=== PATIENT | female | born 1970 | race Caucasian/White ===

== ENCOUNTER 2016-08-17 07:50 | Day surgery (SDC) | payer OTHER ==
[~2016-08-17 07:50] MED LIST: LACTATED RINGERS 1,000 ML IV SCH
[2016-08-17 08:19] VITALS: TEMP 98.6
[2016-08-17] MEDS ORDERED: LIDOCAINE 1% 20 ML VIAL (10MG/ML) FOR IV START SQ ONE (08:28)
[2016-08-17] MEDS ORDERED: LACTATED RINGERS 1,000 ML IV ONE (08:30)
[2016-08-17] MEDS ORDERED: DEXAMETHASONE SOD PHOS (MDV) 100 MG/10 ML VIAL ONE (08:44)
[2016-08-17] MEDS ORDERED: MIDAZOLAM 2 MG/2 ML VIAL ONE (08:44)
[2016-08-17] MEDS ORDERED: fentaNYL (PF) 50 MCG/ML 2 ML AMP ONE (08:44)
--- NOTE | 2016-08-17 09:06 | P.PCN ---
Date of Procedure: 08/17/16 Procedure(s) Performed: . PROCEDURE 1. Cervical epidural steroid injection under fluoroscopic guidance, C6-7 2. Cervical epidurogram. PREOPERATIVE DIAGNOSIS: 1- Cervical Degenerative Disc Diseases 2- Cervical radiculopathy. POSTOPERATIVE DIAGNOSIS: : 1- Cervical Degenerative Disc Diseases , 2- Cervical radiculopathy. ANESTHESIA: Local anesthesia with 1% lidocaine2 ml and IV sedation with Versed 2 mg and Fentanyl 100 mcg. EBL 0 PROCEDURE INDICATION: The patient with neck pain and radiculitis unresponsive to conservative treatment consents for procedure. PROCEDURE DESCRIPTION / TECHNIQUE: The patient was seen and identified in the preoperative area. Risks, benefits, complications, including but not limited to infections ,bleeding , allergic reactions to the medications ,and not complete pain releife, and alternatives were discussed with the patient, the patient agreed to proceed with the procedure and signed the consent. Patient was taken to the OR and time out was completed. The patient was placed in the prone position on the procedure table. A pillow was placed under the patients chest to increase the cervical interlaminar space. The cervical area was prepped and draped in the usual sterile fashion. Vital signs were closely monitored during the procedure. Conscious sedation was used during the procedure to decrease patients anxiety. Using anterior-posterior fluoroscopy, the C6-7 interlaminar space was identified and the skin over this site was marked and then infiltrated with 1% lidocaine subcutaneously. Subsequently, a 20-gauge 3-1/2-inch Tuohy epidural needle was inserted and advanced toward the epidural space by means of the `` hanging-drop technique and guided by AP and lateral fluoroscopy. The correct needle position in the epidural space was verified with fluoroscopy, then after negative aspiration for blood and CSF and in the absence of paresthesias dexamethasone 20 mg and normal saline 0.9% preservative-free 2 ml mixed together and injected after negative aspiration,. then the Needle was withdrawn intact, skin was cleansed, and bandages were applied. Complications= none. Disposition= patient was placed in supine position and transferred to the recovery room area in stable condition and there was no evidence of upper or lower extremity motor or sensory deficit after the procedure patient was discharged from recovery room after discharge criteria met and home discharge instructions was given by the staff and patient will follow with the pain clinic in 2-4 weeks
[2016-08-17] MEDS ORDERED: IV FLUID CONTINUATION 1,000 ML IV ONE ×2 (09:13)
--- NOTE | 2016-08-17 09:15 | FL ---
FLUOROSCOPY 1 seconds of fluoroscopy time were utilized during Pain Injection. 1 images document the procedure.
[2016-08-17 09:31] VITALS: BP 131/79; PULSE 99; RESP 20
== END 2016-08-17 09:43 | disposition home or self-care (01) ==
LOC: ORPAIN 07:50
PROVIDERS: ATTEND Specialist
DX: M50.10 Cervical disc disorder with radiculopathy, unspecified cervical region (principal); Z91.040 Latex allergy status; Z88.5 Allergy status to narcotic agent; Z91.018 Allergy to other foods; Z91.09 Other allergy status, other than to drugs and biological substances
CPT/HCPCS: 62321; 99152; J2250; J3010; J1100

== ENCOUNTER 2016-09-15 17:19 | Emergency (ER) | payer OTHER ==
[2016-09-15 17:25] VITALS: RESP 18
[2016-09-15] MEDS ORDERED: SODIUM CHLORIDE 0.9% 1,000 ML IV ONE (18:02)
[2016-09-15] MEDS ORDERED: ONDANSETRON 4 MG/2 ML VIAL IVP STA (18:02)
[2016-09-15] MEDS ORDERED: SUCRALFATE 1 GM TAB PO STA (18:02)
[2016-09-15] MEDS ORDERED: FAMOTIDINE 20 MG/2 ML VIAL IV STA (18:02)
[2016-09-15 18:58] LABS: Basophils # (A) 0.1 k/uL (0-0.2); Basophils % (A) 1 %; CH 30.6; CHCM 35.5; Eosinophils # (A) 0.2 k/uL (0-0.7); Eosinophils % (A) 1 %; HDW 3.12; HGB 15.9 gm/dL (11.4-16.0); Luc % (Auto) 2; Lymphocytes # (A) 1.6 k/uL (1.0-4.8); Lymphocytes % (A) 12 %; MCH 29.3 pg (25.0-35.0); MCHC 33.7 g/dL (31.0-37.0); MCV 86.9 fL (80.0-100.0); Mean Platelet Volume 6.8; Monocytes # (A) 0.4 k/uL (0-1.0); Monocytes % (A) 3 %; Neutrophils # (A) 10.4 k/uL (1.3-7.7); Neutrophils % (A) 80 %; RBC 5.41 m/uL (3.80-5.40); RDW 14.1 % (11.5-15.5); WBC 13.1 k/uL (3.8-10.6)
[2016-09-15 19:01] LABS: Appearance,Urine Clear (Clear); Bacteria,Urine Rare /hpf; Bilirubin,Urine Negative (Negative); Glucose,Urine (UA) Negative (Negative); Ketones,Urine Trace (Negative); Leukocyte Esterase,Urine Moderate (Negative); Mucus,Urine Occasional /hpf; Nitrite,Urine Negative (Negative); PH, Urine 6.5 (5.0-8.0); Particle Count 4147; Protein,Urine Trace (Negative); RBC,Urine 6 /hpf (0-5); Specific Gravity,Urine 1.025 (1.001-1.035); Squamous Epithelial Cell,Urine 2 /hpf (0-4); UA Billing (MACRO vs. MICRO) MICRO; WBC,Urine 9 /hpf (0-5)
[2016-09-15 19:14] LABS: ALT 45 U/L (9-52); AST 25 U/L (14-36); Alkaline Phosphatase 87 U/L (38-126); Anion Gap 14 mmol/L; Blood Urea Nitrogen 14 mg/dL (7-17); Calcium 9.9 mg/dL (8.4-10.2); Carbon Dioxide 27 mmol/L (22-30); Chloride 107 mmol/L (98-107); Glucose 123 mg/dL (74-99); Non-African American GFR(MDRD) >60 (>60 ml/min/1.73 sqM); Potassium 4.7 mmol/L (3.5-5.1); Sodium 148 mmol/L (137-145); Total Bilirubin 0.7 mg/dL (0.2-1.3); Total Protein 7.6 g/dL (6.3-8.2)
--- NOTE | 2016-09-15 19:24 | US ---
EXAMINATION TYPE: US abdomen limited DATE OF EXAM: 09/15/2016 7:17 PM COMPARISON: NONE CLINICAL HISTORY: Nausea/vomiting. Pain. Difficult/limited exam due to patient body habitus. EXAM MEASUREMENTS: Liver Length: 19.2 cm Gallbladder Wall: 0.2 cm CBD: 0.3 cm Right Kidney: 10.7 x 4.2 x 5.1 cm Findings: Pancreas: Obscured by bowel gas, visualized portions show no mass Liver: Increased attenuation, heterogeneous. Enlarged Gallbladder: wnl Evidence for sonographic Rodríguez's sign: No CBD: wnl Right Kidney: No hydronephrosis or masses seen IMPRESSION: 1. Hepatomegaly with fatty liver.
--- NOTE | 2016-09-15 19:53 | ED ---
Nausea/Vomiting/Diarrhea HPI - General Chief complaint: Nausea/Vomiting/Diarrhea Stated complaint: dehydration Source: patient Mode of arrival: ambulatory Limitations: no limitations - History of Present Illness Initial comments: Patient is a 46-year-old female who presents for evaluation for nausea and vomiting times one night. Past medical history as below. Patient states that she's been very nauseous throughout the day today. No significant changes in diet. Stated that her emesis was mainly stomach contents but then became more bilious in nature. She has some discomfort to the epigastric area. No radiation of pain. Nothing seems to make it better or worse. It may have gotten worse after eating but she is not sure. Good appetite today. Patient believes that is related to her recent change in medications. She has been titrating down her Lamictal, duloxetine which she thinks that may be related. However, the patient has been tolerating these medications in the past and has otherwise been doing well with them. No known sick contacts. She denies fever , chills, headache, changes of vision, URI symptoms, shortness of breath, cough , chest pain, diarrhea, pain or burning with urination. Isn't on related aside, the patient does have an extensive rash to her upper extremities lower extremities and parts of her back and abdomen. She is working with dermatology as an outpatient and has tried several medications with limited relief. She states that the rash is itchy and she scratches it and she bleeds and scabs over. There is been no change in her rash. - Related Data Home Medications Medication Instructions Recorded Confirmed Albuterol Inhaler [Ventolin 2 puff INHALATION RT-Q4H PRN 04/10/14 09/15/16 Inhaler] DULoxetine HCL [Cymbalta] 60 mg PO BID 04/10/14 09/15/16 Montelukast [Singulair] 10 mg PO HS 04/10/14 09/15/16 Omeprazole [PriLOSEC] 20 mg PO AC-BRKFST 04/10/14 09/15/16 lamoTRIgine [LaMICtal] 200 mg PO BID 04/10/14 09/15/16 Lisinopril [Zestril] 20 mg PO DAILY 03/26/16 09/15/16 Medroxyprogesterone Acetate 150 mg IM Q84D 03/26/16 09/15/16 [Depo-Provera] Metoprolol Tartrate 50 mg PO BID 03/26/16 09/15/16 Modafinil [Provigil] 200 mg PO DAILY 03/26/16 09/15/16 QUEtiapine FUMARATE [SEROquel XR] 150 mg PO HS 03/26/16 09/15/16 Cholecalciferol [Vitamin D3] 3,000 unit PO DAILY 04/29/16 09/15/16 Ranitidine HCl [Zantac] 75 mg PO HS 08/12/16 09/15/16 Butalb/APAP/Caff 50-325-40Mg 1 tab PO Q8H PRN 09/15/16 09/15/16 [Fioricet 50-325-40] Previous Rx's Medication Instructions Recorded Ondansetron Odt [Zofran Odt] 4 mg PO Q8HR PRN #10 tab 09/15/16 Allergies Allergy/AdvReac Type Severity Reaction Status Date / Time coconut AdvReac Rash/Hives Verified 09/15/16 17:25 codeine AdvReac Nausea & Verified 09/15/16 17:25 Vomiting ibuprofen AdvReac GI upset Verified 09/15/16 17:25 iodine AdvReac Itching Verified 09/15/16 17:25 kiwi AdvReac Rash/Hives Verified 09/15/16 17:25 latex AdvReac Itching Verified 09/15/16 17:25 NSAIDS (Non-Steroidal AdvReac GI upset Verified 09/15/16 17:25 Anti-Inflamma shellfish derived AdvReac Itching Verified 09/15/16 17:25 Sulfa (Sulfonamide AdvReac Nausea & Verified 09/15/16 17:25 Antibiotics) Vomiting water chestnut AdvReac Rash/Hives Verified 09/15/16 17:25 barium solution AdvReac Nausea & Uncoded 09/15/16 17:25 Vomiting Review of Systems ROS Statement: Those systems with pertinent positive or pertinent negative responses have been documented in the HPI. ROS Other: All systems not noted in ROS Statement are negative. Past Medical History Past Medical History: Asthma, Fibromyalgia, GERD/Reflux, GI Bleed, Hypertension Additional Past Medical History / Comment(s): Chronic Fatigue, Hiatal Hernia, Narcolepsy History of Any Multi-Drug Resistant Organisms: None Reported Past Surgical History: Appendectomy, Orthopedic Surgery Additional Past Surgical History / Comment(s): BILAT carpal tunnel, PAIN CLINIC , CUBITAL TUNNEL RELEASE BILAT ELBOWS, dental surgery Past Anesthesia/Blood Transfusion Reactions: No Reported Reaction Past Psychological History: Bipolar Smoking Status: Never smoker Past Alcohol Use History: None Reported Additional Past Alcohol Use History / Comment(s): recovering alcoholic Past Drug Use History: None Reported - Past Family History Mother Family Medical History: Deep Vein Thrombosis (DVT), Myocardial Infarction ([place]) Additional Family Medical History / Comment(s): lupus General Exam Limitations: no limitations General appearance: alert, in no apparent distress, other (Nontoxic appearing) Head exam: Present: atraumatic, normocephalic, normal inspection Eye exam: Present: normal appearance, PERRL, EOMI. Absent: scleral icterus, conjunctival injection, periorbital swelling ENT exam: Present: normal exam, mucous membranes moist Neck exam: Present: normal inspection. Absent: tenderness, meningismus, lymphadenopathy Respiratory exam: Present: normal lung sounds bilaterally. Absent: respiratory distress, wheezes, rales, rhonchi, stridor Cardiovascular Exam: Present: regular rate, normal rhythm, normal heart sounds. Absent: systolic murmur, diastolic murmur, rubs, gallop, clicks GI/Abdominal exam: Present: soft, normal bowel sounds, other (Abdomen is somewhat tender in the epigastric area. Negative Rodríguez sign. Soft abdomen. No peritoneal signs.). Absent: distended, tenderness, guarding, rebound, rigid Extremities exam: Present: normal inspection, full ROM, normal capillary refill. Absent: tenderness, pedal edema, joint swelling, calf tenderness Back exam: Present: normal inspection Neurological exam: Present: alert, oriented X3, CN II-XII intact Psychiatric exam: Present: normal affect, normal mood Skin exam: Present: warm, dry, intact, normal color, other (Patient has multiple hives that have been scratched and scabbed over. No cellulitis. No erythematous base. Not any specific dermatomal distribution to be suggestive of shingles. No abscesses.). Absent: rash Course Vital Signs 09/15/16 17:22 Temperature 98.9 F Pulse Rate 84 Respiratory 18 Rate Blood Pressure 147/98 O2 Sat by Pulse 100 Oximetry Medical Decision Making - Medical Decision Making Patient presents for evaluation for nausea and vomiting. Symptoms have been going on for the last 24 hours. Patient has been working with her composite bond technician for this ongoing rash which is pitting going on for the last 3-4 weeks. Has tried multiple medications. Her main concern today though however is the nausea and vomiting and epigastric discomfort that she's having. It sounds like biliary colic in nature. We'll order notches sound of her right upper quadrant, abdominal labs, IV fluids, antiemetics, GI cocktail. 1950: Laboratory studies as below. Largely unremarkable. Mild leukocytosis at 13.1. Kidney function is normal. Liver enzymes are normal. Reviewed ultrasound which revealed a fatty liver. No specific signs of gallbladder pathology. I went to reevaluate the patient and she states that she actually feels much better. Will give a prescription for Zofran for home. Encourage close follow-up with her primary care physician. May require further outpatient testing. Mono diet. Plenty of fluids. As far as her rash goes, I did offer the patient clindamycin for concern for possible MRSA with her frequent scratching and bleeding and scabs over. Patient declined prescription and states that she will follow-up with her composite bond technician who she's been working with closely. Also stressed the importance of working with her outpatient physicians for down titrating her medications as they could've serious side effects. Voiced understanding. Discussed signs and symptoms on when to return to the emergency department for further evaluation. Comfortable discharge home and will follow-up. - Lab Data Result diagrams: 09/15/16 18:34 09/15/16 18:34 Lab Results 09/15/16 09/15/16 09/15/16 Range/Units 18:34 18:34 18:34 WBC 13.1 H (3.8-10.6) k/uL RBC 5.41 H (3.80-5.40) m/uL Hgb 15.9 (11.4-16.0) gm/dL Hct 47.0 H (34.0-46.0) % MCV 86.9 (80.0-100.0) fL MCH 29.3 (25.0-35.0) pg MCHC 33.7 (31.0-37.0) g/dL RDW 14.1 (11.5-15.5) % Plt Count 279 (150-450) k/uL Neutrophils % 80 % Lymphocytes % 12 % Monocytes % 3 % Eosinophils % 1 % Basophils % 1 % Neutrophils # 10.4 H (1.3-7.7) k/uL Lymphocytes # 1.6 (1.0-4.8) k/uL Monocytes # 0.4 (0-1.0) k/uL Eosinophils # 0.2 (0-0.7) k/uL Basophils # 0.1 (0-0.2) k/uL Sodium 148 H (137-145) mmol/L Potassium 4.7 (3.5-5.1) mmol/L Chloride 107 (98-107) mmol/L Carbon Dioxide 27 (22-30) mmol/L Anion Gap 14 mmol/L BUN 14 (7-17) mg/dL Creatinine 0.90 (0.52-1.04) mg/dL Est GFR (MDRD) Af Amer >60 (>60 ml/min/1.73 sqM) Est GFR (MDRD) Non-Af >60 (>60 ml/min/1.73 sqM) Glucose 123 H (74-99) mg/dL Calcium 9.9 (8.4-10.2) mg/dL Total Bilirubin 0.7 (0.2-1.3) mg/dL AST 25 (14-36) U/L ALT 45 (9-52) U/L Alkaline Phosphatase 87 (38-126) U/L Total Protein 7.6 (6.3-8.2) g/dL Albumin 4.5 (3.5-5.0) g/dL Lipase 97 (23-300) U/L Urine Color Yellow Urine Appearance Clear (Clear) Urine pH 6.5 (5.0-8.0) Ur Specific [place] 1.025 (1.001-1.035) Urine Protein Trace H (Negative) Urine Glucose (UA) Negative (Negative) Urine Ketones Trace H (Negative) Urine Blood Negative (Negative) Urine Nitrate Negative (Negative) Urine Bilirubin Negative (Negative) Urine Urobilinogen 2.0 (<2.0) mg/dL Ur Leukocyte Esterase Moderate H (Negative) Urine RBC 6 H (0-5) /hpf Urine WBC 9 H (0-5) /hpf Ur Squamous Epith Cells 2 (0-4) /hpf Urine Bacteria Rare H (None) /hpf Urine Mucus Occasional H (None) /hpf Influenza Type A RNA (Not Detectd) Influenza Type B (PCR) (Not Detectd) 09/15/16 Range/Units 18:34 WBC (3.8-10.6) k/uL RBC (3.80-5.40) m/uL Hgb (11.4-16.0) gm/dL Hct (34.0-46.0) % MCV (80.0-100.0) fL MCH (25.0-35.0) pg MCHC (31.0-37.0) g/dL RDW (11.5-15.5) % Plt Count (150-450) k/uL Neutrophils % % Lymphocytes % % Monocytes % % Eosinophils % % Basophils % % Neutrophils # (1.3-7.7) k/uL Lymphocytes # (1.0-4.8) k/uL Monocytes # (0-1.0) k/uL Eosinophils # (0-0.7) k/uL Basophils # (0-0.2) k/uL Sodium (137-145) mmol/L Potassium (3.5-5.1) mmol/L Chloride (98-107) mmol/L Carbon Dioxide (22-30) mmol/L Anion Gap mmol/L BUN (7-17) mg/dL Creatinine (0.52-1.04) mg/dL Est GFR (MDRD) Af Amer (>60 ml/min/1.73 sqM) Est GFR (MDRD) Non-Af (>60 ml/min/1.73 sqM) Glucose (74-99) mg/dL Calcium (8.4-10.2) mg/dL Total Bilirubin (0.2-1.3) mg/dL AST (14-36) U/L ALT (9-52) U/L Alkaline Phosphatase (38-126) U/L Total Protein (6.3-8.2) g/dL Albumin (3.5-5.0) g/dL Lipase (23-300) U/L Urine Color Urine Appearance (Clear) Urine pH (5.0-8.0) Ur Specific [place] (1.001-1.035) Urine Protein (Negative) Urine Glucose (UA) (Negative) Urine Ketones (Negative) Urine Blood (Negative) Urine Nitrate (Negative) Urine Bilirubin (Negative) Urine Urobilinogen (<2.0) mg/dL Ur Leukocyte Esterase (Negative) Urine RBC (0-5) /hpf Urine WBC (0-5) /hpf Ur Squamous Epith Cells (0-4) /hpf Urine Bacteria (None) /hpf Urine Mucus (None) /hpf Influenza Type A RNA Not Detected (Not Detectd) Influenza Type B (PCR) Not Detected (Not Detectd) Disposition Clinical Impression: Nausea & vomiting, Leukocytosis, Rash Disposition: HOME SELF-CARE Condition: Fair Instructions: Acute Nausea and Vomiting (ED), Acute Rash (ED) Prescriptions: Ondansetron Odt [Zofran Odt] 4 mg PO Q8HR PRN #10 tab PRN Reason: Nausea And Vomiting Referrals: Jillian Mcguire MD [Primary Care Provider] - 1-2 days Nickolas Grigsby MD [STAFF PHYSICIAN] - 1-2 days
[2016-09-15 20:12] VITALS: BP 124/72; PULSE 70; TEMP 98.6
== END 2016-09-15 20:15 | disposition home or self-care (01) ==
LOC: EC 17:19
DX: R11.2 Nausea with vomiting, unspecified (principal); D72.829 Elevated white blood cell count, unspecified; R21 Rash and other nonspecific skin eruption; R19.7 Diarrhea, unspecified; J45.909 Unspecified asthma, uncomplicated; G47.419 Narcolepsy without cataplexy; K21.9 Gastro-esophageal reflux disease without esophagitis; I10 Essential (primary) hypertension; M79.7 Fibromyalgia; F31.9 Bipolar disorder, unspecified; Z79.899 Other long term (current) drug therapy; Z88.2 Allergy status to sulfonamides; Z88.8 Allergy status to other drugs, medicaments and biological substances; Z91.013 Allergy to seafood; Z91.018 Allergy to other foods; Z88.6 Allergy status to analgesic agent; Z88.5 Allergy status to narcotic agent; Z87.19 Personal history of other diseases of the digestive system; Z90.49 Acquired absence of other specified parts of digestive tract
CPT/HCPCS: 99284; 96374; 96375; 96361 ×2; 36415; 80053; 83690; 85025; 81001; 87502; 76705; J2405

== ENCOUNTER 2016-09-21 06:23 | Day surgery (SDC) | payer OTHER ==
[2016-09-17 15:11] VITALS: BMI 39.3
[2016-09-21] MEDS ORDERED: LACTATED RINGERS 1,000 ML IV SCH (06:30)
[2016-09-21 06:44] VITALS: TEMP 98
[2016-09-21] MEDS ORDERED: LIDOCAINE 1% 20 ML VIAL (10MG/ML) FOR IV START INTRADERMA ONE (06:49)
[2016-09-21] MEDS ORDERED: MIDAZOLAM 2 MG/2 ML VIAL ONE (07:12)
[2016-09-21] MEDS ORDERED: fentaNYL (PF) 50 MCG/ML 2 ML AMP ONE (07:12)
[2016-09-21] MEDS ORDERED: DEXAMETHASONE SOD PHOS (MDV) 100 MG/10 ML VIAL ONE (07:12)
[2016-09-21] MEDS ORDERED: IV FLUID CONTINUATION 700 ML IV ONE (07:37)
[2016-09-21 07:58] VITALS: RESP 18
--- NOTE | 2016-09-21 08:07 | FL ---
EXAMINATION TYPE: FL guided pain mgmt statistic DATE OF EXAM: 09/21/2016 7:36 AM CLINICAL HISTORY: Neck pain. TECHNIQUE: Fluoroscopy. COMPARISON: None. FINDINGS: Fluoroscopic guidance was provided during pain relief procedure performed by Dr. Valdez . A total of 12 seconds of fluoroscopic time was utilized during the procedure and one spot image is ac quired. Single image acquired shows needle localization at level of the lower cervical spine. IMPRESSION: As Above.
[2016-09-21 08:30] VITALS: BP 112/75; PULSE 75
--- NOTE | 2016-09-21 09:33 | P.PCN ---
Date of Procedure: 09/21/16 Surgeon: Jonh Valdez Pathology: none sent Condition: stable Disposition: PACU Description of Procedure: PREOPERATIVE DIAGNOSIS: Cervical radiculopathy. POSTOPERATIVE DIAGNOSIS: Cervical radiculopathy. PROCEDURE 1. Cervical epidural steroid injection under fluoroscopic guidance, C7-T1 level. 2. Cervical epidurogram. ANESTHESIA: Local anesthesia with 1% lidocaine and IV sedation with versed/ fentanyl. EBL: Minimal PROCEDURE INDICATION: The patient with neck pain and radiculitis unresponsive to conservative treatment consents for procedure. No use of blood thinners. PROCEDURE DESCRIPTION / TECHNIQUE: The patient was seen and identified in the preoperative area. Risks, benefits, complications, and alternatives were discussed with the patient (including but not limited to incomplete pain relief, bleeding, infection, nerve damage, and allergies to medications), the patient agreed to proceed with the procedure and signed the consent after all questions were answered. Patient was taken to the OR and time out was completed to verify proper patient , position, laterality of pain, and allergies. Pt was placed in the prone position. A pillow was placed under the patients chest to increase the cervical interlaminar space. The cervical area was prepped and draped in the usual sterile fashion. Critical pause was taken. Vital signs were closely monitored during the procedure. Conscious sedation was used during the procedure to decrease patients anxiety. Using anterior-posterior fluoroscopy, the C7-T1 interlaminar space was identified and the skin over this site was marked and then infiltrated with 1% lidocaine subcutaneously in a paramedian fashion. Subsequently, a 20-gauge 3-1/2 -inch Tuohy epidural needle was inserted and advanced toward the epidural space by means of the loss of resistance technique and guided by AP and lateral fluoroscopy. After loss of resistance and negative aspiration for blood or CSF and in the absence of paresthesias, NO CONTRAST WAS INJECTED DUE TO IODINE ALLERGY and a 5 ml mixture containing 20 mg of Decadron and 3 ml of preservative free Normal Saline solution was injected and a washout of epidurogram was seen. Needle was withdrawn intact, skin was cleansed, and bandages were applied. COMPLICATIONS: None COMMENTS: DISPOSITION / PLANS: The patient was placed in a supine position and transferred to the recovery area in a stable condition for observation. There was no evidence of upper extremity motor or sensory deficit after the procedure. Patient was discharged from the recovery room after meeting discharge criteria. Home discharge instructions were given to the patient by the staff. The patient was reexamined prior to discharge. The patient will schedule a follow up in the clinic in 2-4 weeks as this was her third injection today.
== END 2016-09-21 08:39 | disposition home or self-care (01) ==
LOC: ORPAIN 06:23
PROVIDERS: ATTEND Anesthesiology
DX: G89.29 Other chronic pain (principal); M54.2 Cervicalgia; M54.12 Radiculopathy, cervical region; R51 Headache; Z91.040 Latex allergy status; Z88.5 Allergy status to narcotic agent; Z88.8 Allergy status to other drugs, medicaments and biological substances; Z91.09 Other allergy status, other than to drugs and biological substances
CPT/HCPCS: 81025; 62321; 99152; J2250; J3010; J1100

== ENCOUNTER → 2016-10-21 | Outpatient (CLI) | payer OTHER ==
[2016-10-21 12:29] VITALS: BP 122/83; PULSE 99; RESP 16; TEMP 98.1
--- NOTE | 2016-10-22 16:06 | P.CONS ---
History of Present Illness - Reason for Consult Consult date: 10/21/16 - History of Present Illness This is a follow-up visit ,for this patient with a history of severe neck pain with radiation to the upper extremity patient was diagnosed with cervical radiculopathy, status post cervical epidural steroid injections patient reported that she had significant improvement of her neck pain after the injection, and she is currently having severe bilateral hip pain , and she reports was no initiating event and the hip pain increased with any activity, she denies any motor or sensory deficit she denies any fever or night sweats, the hip pain increased with movement Past Medical History Past Medical History: Asthma, Fibromyalgia, GERD/Reflux, GI Bleed, Hypertension Additional Past Medical History / Comment(s): Chronic Fatigue, Hiatal Hernia, Narcolepsy History of Any Multi-Drug Resistant Organisms: None Reported Past Surgical History: Appendectomy, Orthopedic Surgery Additional Past Surgical History / Comment(s): BILAT carpal tunnel, PAIN CLINIC , CUBITAL TUNNEL RELEASE BILAT ELBOWS, dental surgery Past Anesthesia/Blood Transfusion Reactions: No Reported Reaction Past Psychological History: Bipolar Smoking Status: Never smoker Past Alcohol Use History: None Reported Additional Past Alcohol Use History / Comment(s): recovering alcoholic Past Drug Use History: None Reported - Past Family History Mother Family Medical History: Deep Vein Thrombosis (DVT), Myocardial Infarction ([place]) Additional Family Medical History / Comment(s): lupus Medications and Allergies Home Medications Medication Instructions Recorded Confirmed Type Albuterol Inhaler [Ventolin 2 puff INHALATION RT-Q4H PRN 04/10/14 10/21/16 History Inhaler] Montelukast [Singulair] 10 mg PO HS 04/10/14 10/21/16 History Omeprazole [PriLOSEC] 20 mg PO AC-BRKFST 04/10/14 10/21/16 History Lisinopril [Zestril] 20 mg PO DAILY 03/26/16 10/21/16 History Medroxyprogesterone Acetate 150 mg IM Q84D 03/26/16 10/21/16 History [Depo-Provera] Modafinil [Provigil] 200 mg PO DAILY 03/26/16 10/21/16 History Cholecalciferol [Vitamin D3] 3,000 unit PO DAILY 04/29/16 10/21/16 History Ranitidine HCl [Zantac] 75 mg PO HS 08/12/16 10/21/16 History Butalb/APAP/Caff 50-325-40Mg 1 tab PO Q8H PRN 09/15/16 10/21/16 History [Fioricet 50-325-40] LORazepam [Ativan] 1 mg PO HS 09/21/16 10/21/16 History Methylphenidate HCl 20 mg PO BID PRN 10/21/16 10/21/16 History Allergies Allergy/AdvReac Type Severity Reaction Status Date / Time duloxetine Allergy Rash/Hives Verified 10/21/16 12:17 lamotrigine [From Lamictal] Allergy Rash/Hives Verified 10/21/16 12:17 quetiapine [From Seroquel] Allergy Rash/Hives Verified 10/21/16 12:17 coconut AdvReac Rash/Hives Verified 10/21/16 12:17 codeine AdvReac Nausea & Verified 10/21/16 12:17 Vomiting ibuprofen AdvReac GI upset Verified 10/21/16 12:17 iodine AdvReac Itching Verified 10/21/16 12:17 kiwi AdvReac Rash/Hives Verified 10/21/16 12:17 latex AdvReac Itching Verified 10/21/16 12:17 NSAIDS (Non-Steroidal AdvReac GI upset Verified 10/21/16 12:17 Anti-Inflamma shellfish derived AdvReac Itching Verified 10/21/16 12:17 Sulfa (Sulfonamide AdvReac Nausea & Verified 10/21/16 12:17 Antibiotics) Vomiting water chestnut AdvReac Rash/Hives Verified 10/21/16 12:17 barium solution AdvReac Nausea & Uncoded 10/21/16 12:17 Vomiting Physical Exam Physical Examinations : 1-Constitutiona : Cooperative , not in acute distress . 2-HEENT : nech ; supple , no Lymphadenopathy , no Thyromegaly , normal thyroid size . eyes : no ptosis , no icterus, no photophobia . ENT : normal of hearing , normal oropharynx , no Thrush . 3- Respiratory : Chest clear to auscultations Bilaterally , no wheezing , no Rhonchi . 4- Cardiovascular : regular rate and rhythem , S1 , S2 , no S3 , no S4. 5- Gastrointestinal : abdomen soft no tenderness , bowel sounds positive all four quadrents , no organomegally . 6- Genitourinary : Defferred . 7- neurologic : Cranial nerve II to XII intact , no focal neurological deffecit . 8-psychatric : alert , oriented X 3 , appropriate affect , intact judgment and insight . 9-Lymphatic : no Lymphadenopathy . 10- musculoskeltal : exams of the cervical spine = normal motor stregnth in the deltoid and biceps, positive cervical facet loading test . exams of the Lumber spine = normal moter stegnth lower extremities ,thigh and legs .5/5 deep tendon reflexes : normal Knee Jerk , normal ankle Jerk . positive lumber facet Loading Test strait leg raising test negative Fabere test negative Flexion and extension of the left hip joint associated with severe pain Flexion and extension of the right hip joint associated with mild to moderate pain Assessment and Plan Plan: Assessment and plan = - Cervical radiculopathy, improved after the cervical epidural steroid injection. -Left hip arthralgia, she benefits from left hip steroid injection under fluoroscopy guidance she does not benefit after the first injection then we'll consider doing an MRI , I'm referring her to orthopedic surgeon for evaluation for possible surgical interventions treatment plan discussed with patient she agreed to the proceeding Time with Patient: Less than 30
== END | disposition home or self-care (01) ==
LOC: PNWHC3 12:05
PROVIDERS: ATTEND Specialist
DX: M54.12 Radiculopathy, cervical region (principal); J45.909 Unspecified asthma, uncomplicated; M79.7 Fibromyalgia; K21.9 Gastro-esophageal reflux disease without esophagitis; I10 Essential (primary) hypertension; K92.2 Gastrointestinal hemorrhage, unspecified; Z79.899 Other long term (current) drug therapy; Z88.8 Allergy status to other drugs, medicaments and biological substances; Z88.5 Allergy status to narcotic agent; Z88.6 Allergy status to analgesic agent; Z91.048 Other nonmedicinal substance allergy status; Z91.040 Latex allergy status; Z91.013 Allergy to seafood; Z88.2 Allergy status to sulfonamides; Z91.018 Allergy to other foods
CPT/HCPCS: 99211

== ENCOUNTER → 2016-12-04 | Outpatient (CLI) | payer OTHER | LOC: RADMAMWWP 13:49 | PROVIDERS: ATTEND Family Medicine | DX: Z53.9 Procedure and treatment not carried out, unspecified reason (principal) ==

== ENCOUNTER → 2017-03-24 | Day surgery (SDC) | payer OTHER ==
[2017-03-22 15:16] VITALS: BMI 33.3
[~2017-03-24] MED LIST changes: +IV FLUID CONTINUATION 1,000 ML IV ONE
[2017-03-24 09:42] VITALS: RESP 16; TEMP 98.6
--- NOTE | 2017-03-24 10:46 | FL ---
EXAMINATION TYPE: FL guided pain mgmt statistic DATE OF EXAM: 03/24/2017 CLINICAL HISTORY: Left hip pain. TECHNIQUE: Fluoroscopy. COMPARISON: None. FINDINGS: Fluoroscopic guidance was provided during pain relief procedure performed by Dr. Valdez. A total of 8 seconds of fluoroscopic time was utilized during the procedure and two spot images are ac quired. Images acquired shows needle localization near level of left hip joint. IMPRESSION: As Above.
[2017-03-24 11:07] VITALS: BP 141/90; PULSE 85
--- NOTE | 2017-03-24 14:43 | P.PCN ---
Date of Procedure: 03/24/17 Surgeon: Jonh Valdez Pathology: none sent Condition: stable Disposition: PACU Description of Procedure: PREOPERATIVE DIAGNOSIS: hip osteoarthritis POSTOPERATIVE DIAGNOSIS: same PROCEDURES: left intra-articular hip injection with fluoroscopy ANESTHESIA: 1% lidocaine plain; Conscious sedation with versed/fentanyl EBL: Minimal PROCEDURE INDICATION: The patient with left hip pain secondary to osteoarthritis who has been unresponsive to conservative therapy. No use of blood thinners. PROCEDURE DESCRIPTION / TECHNIQUE: The patient was seen and identified in the preoperative area. Risks, benefits, complications, and alternatives were discussed with the patient (including but not limited to incomplete pain relief , bleeding, infection, nerve damage, and allergies to medications), the patient agreed to proceed with the procedure and signed the consent after all questions were answered. Patient was taken to the OR and time out was completed to verify proper patient , position, laterality of pain, and allergies. Pt was placed in the prone position. IV was started. Vital signs remained stable throughout the procedure. A pillow was placed under the patients chest to decrease lordosis. The lumbosacral area was prepped and draped in the usual sterile fashion. Vital signs were closely monitored during the procedure. Conscious sedation was used during the procedure to decrease patients anxiety. Using AP fluoroscopy, the femoral neck was identified, marked, and localized with 1% lidocaine. Subsequently, a 22 gauge 3.5-inch spinal needle was advanced guided by fluoroscopy to the 10 o'clock position on the femoral neck until the needle was felt entering the hip capsule. Because of the patient's allergy to IVP dye, no contrast was injected to demonstrate an arthrogram. After negative aspiration for CSF or heme and in the absence of paresthesias, the full 8 ml ml of the block solution containing Kenalog 40 mg and 7 mL of preservative-free 0.5% bupivacaine was injected. At the end of the procedure, the skin was cleansed and bandages were applied. COMPLICATIONS: No acute complications. DISPOSITION / PLANS: The patient was placed in a supine position and transferred to the recovery area in a stable condition for observation and was discharged from the recovery room after meeting discharge criteria. Home discharge instructions given to the patient by the staff. The patient was reexamined prior to discharge and she had significant relief. The patient will schedule a follow up in the clinic in 2-4 weeks to discuss efficacy and possible surgical referral for hip OA.
== END | disposition home or self-care (01) ==
LOC: ORPAIN 08:48
PROVIDERS: ATTEND Anesthesiology
DX: M16.12 Unilateral primary osteoarthritis, left hip (principal)
CPT/HCPCS: 81025; 20610; J2250; J3301; J3010; 99152

== ENCOUNTER → 2017-04-26 | Outpatient (CLI) | payer OTHER ==
[2017-04-26 14:25] VITALS: BP 123/70; PULSE 92; RESP 18
--- NOTE | 2017-04-26 15:24 | P.PN ---
Subjective Progress Note Date: 04/26/17 This is 46 years old female with a history of bilateral hip pain status post left hip joint steroid injections, a few weeks ago patient reports that she had good pain relief after the left hip injection, the pain relief lasted for a few weeks and she is here today for follow-up visit patient reported that she had pain in both hips and any movement walking flexion of the head associated with severe. She denies any fever or night sweats, she denies any weakness in the lower extremity, any activity associated with severe pain, she cannot take any NSAIDs secondary to severe stomach upset Objective - Vital Signs Vital signs: Vital Signs Temp Pulse 92 04/26/17 14:17 Resp 18 04/26/17 14:17 BP 123/70 04/26/17 14:17 Pulse Ox 97 04/26/17 14:17 Intake & Output 04/25/17 04/26/17 04/26/17 18:59 06:59 18:59 Weight 88.451 kg - Exam Physical Examinations : 1-Constitutiona : Cooperative , not in acute distress . 2-HEENT : nech ; supple , no Lymphadenopathy , normal thyroid size . eyes : no ptosis , no icterus, no photophobia . ENT : normal of hearing , normal oropharynx , no Thrush . 3- Respiratory : Chest clear to auscultations Bilaterally , no wheezing , no Rhonchi . 4- Cardiovascular : regular rate and rhythem , S1 , S2 , no S3 , no S4. 5- Gastrointestinal : abdomen soft no tenderness , bowel sounds positive all four quadrents , no organomegally . 6- Genitourinary : Defferred . 7- neurologic : Cranial nerve II to XII intact , no focal neurological deffecit . 8-psychatric : alert , oriented X 3 , appropriate affect , intact judgment and insight . 9-Lymphatic : no Lymphadenopathy . 10- musculoskeltal : , Lumber spine = normal moter stegnth lower extremities ,thigh and legs .5/5 deep tendon reflexes : normal Knee Jerk , normal ankle Jerk . Flexion and extension of right and left hip associated with severe pain carl test is positive bilaterally, Assessment and Plan Plan: Assessment and plan= bilateral hip arthralgia/osteoarthritis Patient will be scheduled to have bilateral hip steroid injections , if she had no improvement then we will consider doing MRI of the hip , and will reffer her to orthopedic surgeon for possible surgical intervention
== END | disposition home or self-care (01) ==
LOC: PNWHC3 13:11
PROVIDERS: ATTEND Specialist
DX: M16.0 Bilateral primary osteoarthritis of hip (principal)
CPT/HCPCS: 99211

== ENCOUNTER → 2017-08-16 | Day surgery (SDC) | payer OTHER ==
[2017-08-06 11:58] VITALS: BMI 31.7
[~2017-08-16] MED LIST changes: +LIDOCAINE 1% 20 ML VIAL (10MG/ML) FOR IV START INTRADERMA ONE; +ONDANSETRON 4 MG/2 ML VIAL IVP ONE
[2017-08-16 10:05] VITALS: RESP 16; TEMP 97.6
--- NOTE | 2017-08-16 11:28 | P.PCN ---
Date of Procedure: 08/16/17 Surgeon: Maura Ernandez Description of Procedure: PREOPERATIVE DIAGNOSIS: hip osteoarthritis POSTOPERATIVE DIAGNOSIS: same PROCEDURES: left intra-articular hip injection with fluoroscopy ANESTHESIA: 1% lidocaine plain; Conscious sedation with versed/fentanyl EBL: Minimal PROCEDURE INDICATION: The patient with left hip pain secondary to osteoarthritis who has been unresponsive to conservative therapy. No use of blood thinners. PROCEDURE DESCRIPTION / TECHNIQUE: The patient was seen and identified in the preoperative area. Risks, benefits, complications, and alternatives were discussed with the patient (including but not limited to incomplete pain relief , bleeding, infection, nerve damage, and allergies to medications), the patient agreed to proceed with the procedure and signed the consent after all questions were answered. Patient was taken to the OR and time out was completed to verify proper patient , position, laterality of pain, and allergies. Pt was placed in the prone position. IV was started. Vital signs remained stable throughout the procedure. A pillow was placed under the patients chest to decrease lordosis. The lumbosacral area was prepped and draped in the usual sterile fashion. Vital signs were closely monitored during the procedure. Conscious sedation was used during the procedure to decrease patients anxiety. Using AP fluoroscopy, the femoral neck was identified, marked, and localized with 1% lidocaine. Subsequently, a 22 gauge 3.5-inch spinal needle was advanced guided by fluoroscopy to the 10 o'clock position on the femoral neck until the needle was felt entering the hip capsule. Because of the patient's allergy to IVP dye, no contrast was injected to demonstrate an arthrogram. After negative aspiration for CSF or heme and in the absence of paresthesias, the full 8 ml ml of the block solution containing Kenalog 40 mg and 5 mL of preservative-free 0.25% bupivacaine was injected. At the end of the procedure, the skin was cleansed and bandages were applied. COMPLICATIONS: No acute complications. DISPOSITION / PLANS: The patient was placed in a supine position and transferred to the recovery area in a stable condition for observation and was discharged from the recovery room after meeting discharge criteria. Home discharge instructions given to the patient by the staff. The patient was reexamined prior to discharge and she had significant relief. The patient will schedule a follow up in the clinic in 2-4 weeks to discuss efficacy and possible surgical referral for hip OA. I will give the patient prescription for Lyrica 75 mg twice a day and also will send her to have an x-ray done on the left hip to assess the intensity of the osteoarthritis.
[2017-08-16 11:33] VITALS: BP 119/62; PULSE 73
--- NOTE | 2017-08-16 15:40 | FL ---
EXAMINATION TYPE: FL guided pain mgmt statistic DATE OF EXAM: 08/16/2017 FLUOROSCOPY Fluoroscopy time of (not provided) seconds was used during left hip steroid injection. 2 image/s doc ument/s the procedure.
== END | disposition home or self-care (01) ==
LOC: ORPAIN 09:22
PROVIDERS: ATTEND Anesthesiology
DX: M16.12 Unilateral primary osteoarthritis, left hip (principal); J45.909 Unspecified asthma, uncomplicated; I10 Essential (primary) hypertension; Z91.040 Latex allergy status; Z88.5 Allergy status to narcotic agent; Z88.2 Allergy status to sulfonamides; M79.7 Fibromyalgia; F31.9 Bipolar disorder, unspecified; G47.419 Narcolepsy without cataplexy; Z91.041 Radiographic dye allergy status
CPT/HCPCS: 20610; J2250; J3301; J2405; J3010; 99152

== ENCOUNTER → 2017-09-03 | Outpatient (CLI) | payer OTHER ==
--- NOTE | 2017-09-03 12:48 | XR ---
EXAMINATION TYPE: XR Hip Complete LT DATE OF EXAM: 09/03/2017 COMPARISON: NONE HISTORY: Pain TECHNIQUE: 2 view left hip FINDINGS: Acetabular spurring is present. There is narrowing of the joint space. No acute fractures a re evident. IMPRESSION: 1. No acute osseous abnormality. 2. Mild degenerative joint change left hip
== END | disposition home or self-care (01) ==
LOC: RADXRMAIN 12:27
PROVIDERS: ATTEND Anesthesiology
DX: M16.10 Unilateral primary osteoarthritis, unspecified hip (principal)
CPT/HCPCS: 73502

== ENCOUNTER → 2017-09-13 | Outpatient (CLI) | payer OTHER ==
[2017-09-13 12:06] VITALS: BP 142/59; PULSE 84; RESP 16
--- NOTE | 2017-09-13 12:25 | P.PN ---
Progress Note - Text Progress Note Date: 09/13/17 This is a 47-year-old female with history of neck pain and left hip joint pain due to osteoarthritis. She states that her neck pain is minimal at this point and she responded very well to the last intra-articular left hip joint injection with steroids. Her left hip pain has improved significantly since then. She takes Lyrica 75 mg twice a day and I will increase to 75 mg 3 times a day. The patient is alert oriented 3 in no apparent distress. She is able to ambulate comfortably with no Waddling as the patient states. She has normal muscle strength in the upper and lower extremities and she denies any bowel or bladder dysfunction. We will see the patient on an as-needed basis.
== END ==
LOC: PNWHC3 11:32
PROVIDERS: ATTEND Anesthesiology
DX: M54.2 Cervicalgia (principal); M16.12 Unilateral primary osteoarthritis, left hip; Z79.899 Other long term (current) drug therapy
CPT/HCPCS: 99211

== ENCOUNTER 2017-10-26 07:24 | Day surgery (SDC) | payer OTHER ==
[2017-10-25 09:13] VITALS: BMI 33.0
[2017-10-26 08:07] VITALS: TEMP 98.6
[2017-10-26] MEDS ORDERED: LIDOCAINE 1% 20 ML VIAL (10MG/ML) FOR IV START INTRADERMA ONE (08:07)
[2017-10-26] MEDS ORDERED: LACTATED RINGERS 1,000 ML IV ONE (08:07)
--- NOTE | 2017-10-26 08:38 | P.PCN ---
Date of Procedure: 10/26/17 Condition: stable Disposition: PACU Description of Procedure: PREOPERATIVE DIAGNOSIS: Left Hip Osteoarthritis POSTOPERATIVE DIAGNOSIS: Left Hip Osteoarthritis PROCEDURES: Left Intra-Articular Hip Injection with fluoroscopy ANESTHESIA: 1% lidocaine plain; Conscious sedation with versed/fentanyl EBL: Minimal PROCEDURE INDICATION: The patient with left hip pain secondary to osteoarthritis who has been unresponsive to conservative therapy. No use of blood thinners. PROCEDURE DESCRIPTION / TECHNIQUE: The patient was seen and identified in the preoperative area. Risks, benefits, complications, and alternatives were discussed with the patient (including but not limited to incomplete pain relief , bleeding, infection, nerve damage, and allergies to medications), the patient agreed to proceed with the procedure and signed the consent after all questions were answered. Patient was taken to the OR and time out was completed to verify proper patient , position, laterality of pain, and allergies. Pt was placed in the prone position. IV was started. Vital signs remained stable throughout the procedure. A pillow was placed under the patients chest to decrease lordosis. The lumbosacral area was prepped and draped in the usual sterile fashion. Vital signs were closely monitored during the procedure. Conscious sedation was used during the procedure to decrease patients anxiety. Using AP fluoroscopy, the femoral neck was identified, marked, and localized with 1% lidocaine. Subsequently, a 22 gauge 3.5-inch spinal needle was advanced guided by fluoroscopy to the 10 o'clock position on the femoral neck until the needle was felt entering the hip capsule. Because of the patient's allergy to IVP dye, no contrast was injected to demonstrate an arthrogram. After negative aspiration for CSF or heme and in the absence of paresthesias, the full 8 ml ml of the block solution containing Kenalog 40 mg and 5 mL of preservative-free 0.5% bupivacaine was injected. At the end of the procedure, the skin was cleansed and bandages were applied. COMPLICATIONS: No acute complications. DISPOSITION / PLANS: The patient was placed in a supine position and transferred to the recovery area in a stable condition for observation and was discharged from the recovery room after meeting discharge criteria. Home discharge instructions given to the patient by the staff. The patient was reexamined prior to discharge and she had significant relief. The patient will schedule a follow up in the clinic in 2-4 weeks to discuss efficacy and possible surgical referral for hip OA. I will give the patient prescription for Lyrica 75 mg twice a day.
[2017-10-26] MEDS ORDERED: GADOBUTROL IV ONE (08:53)
--- NOTE | 2017-10-26 09:13 | FL ---
EXAMINATION TYPE: FL guided pain mgmt statistic DATE OF EXAM: 10/26/2017 HISTORY: Pain 3sec fluoro time,2 images scanned .
[2017-10-26] MEDS ORDERED: IV FLUID CONTINUATION 1,000 ML IV ONE (09:16)
[2017-10-26 09:28] VITALS: BP 110/70; PULSE 76; RESP 18
[2017-10-26] MEDS ORDERED: LACTATED RINGERS 1,000 ML IV SCH (09:45)
== END 2017-10-26 09:42 | disposition home or self-care (01) ==
LOC: ORPAIN 07:24
PROVIDERS: ATTEND Anesthesiology
DX: M16.12 Unilateral primary osteoarthritis, left hip (principal); M54.12 Radiculopathy, cervical region; J45.909 Unspecified asthma, uncomplicated; M79.7 Fibromyalgia; K21.9 Gastro-esophageal reflux disease without esophagitis; K44.9 Diaphragmatic hernia without obstruction or gangrene; I10 Essential (primary) hypertension; R53.82 Chronic fatigue, unspecified; G47.419 Narcolepsy without cataplexy; F31.9 Bipolar disorder, unspecified; G56.03 Carpal tunnel syndrome, bilateral upper limbs; Z79.899 Other long term (current) drug therapy; Z79.3 Long term (current) use of hormonal contraceptives; Z88.8 Allergy status to other drugs, medicaments and biological substances; Z91.013 Allergy to seafood; Z91.09 Other allergy status, other than to drugs and biological substances; Z91.040 Latex allergy status; Z88.5 Allergy status to narcotic agent
CPT/HCPCS: 81025; 20610; J2250; J3301; J2001; A9581

== ENCOUNTER → 2017-11-24 | Outpatient (CLI) | payer OTHER ==
[2017-11-24 14:27] VITALS: BP 103/70; PULSE 90; RESP 16
--- NOTE | 2017-11-24 14:48 | P.PN ---
Subjective Progress Note Date: 11/24/17 This is a very pleasant 47-year-old woman with a history of chronic left hip pain. She is undergone injection therapy in the past. She reports is somewhat helpful. She reports receiving significant benefit from taking Lyrica. She also persistently to yoga on a daily basis. She reports this has been helpful. Her worst pain is at night when she is laying in trying to sleep. She tries to maintain a quite inactive lifestyle to combat her pain. Objective - Vital Signs Vital signs: Vital Signs Temp Pulse 90 11/24/17 14:14 Resp 16 11/24/17 14:14 BP 103/70 11/24/17 14:14 Pulse Ox 97 11/24/17 14:14 Intake & Output 11/23/17 11/24/17 11/24/17 18:59 06:59 18:59 Weight 87.09 kg - Exam Gen.: Patient is alert and oriented. She is not sedated. She answers all questions appropriately and is quite pleasant. Focused physical examination: No focal motor deficits. No focal sensory deficits in the lower extremities. Reflexes are normal at the Achilles and patella bilaterally. She has minimal tenderness over the trochanteric bursa bilaterally. Internal and external rotation of the left hip are provocative for pain pattern. Assessment and Plan (1) Arthralgia of left hip Current Visit: Yes Status: Acute Code(s): M25.552 - PAIN IN LEFT HIP SNOMED Code(s): 46329984 Plan: Medications: I will refill the patient's Lyrica today. She will follow-up in 2 months for medication management. Procedures: Patient is undergone previous injections in this clinic. She may benefit from a left intra-articular hip injection in the future. She is not interested in scheduling this at this time.
== END | disposition home or self-care (01) ==
LOC: PNWHC3 13:34
PROVIDERS: ATTEND Pain Medicine Pain Medicine
DX: G89.29 Other chronic pain (principal); M25.552 Pain in left hip; Z79.899 Other long term (current) drug therapy
CPT/HCPCS: 99211

== ENCOUNTER → 2018-01-18 | Outpatient (CLI) | payer OTHER ==
[2018-01-18 13:04] VITALS: BP 126/82; PULSE 76; RESP 16
--- NOTE | 2018-01-18 13:36 | P.PN ---
Subjective Progress Note Date: 01/18/18 Principal diagnosis: Fibromyalgia and left hip arthritis This is a 47-year-old female with history of fibromyalgia, lower back pain, and left hip pain. The patient left hip pain is worse than her lower back pain. She had 2 left hip joint steroid injection which helped her for about 2 months after the injection. He takes Lyrica 75 mg 3 times a day. She states that her pain wakes her up at night. Her left hip x-ray showed narrowing of the joint space and mild osteoarthritis. Objective - Vital Signs Vital signs: Vital Signs Temp Pulse 76 01/18/18 12:57 Resp 16 01/18/18 12:57 BP 126/82 01/18/18 12:57 Pulse Ox 98 01/18/18 12:57 Intake & Output 01/17/18 01/18/18 01/18/18 18:59 06:59 18:59 Weight 92.079 kg - Constitutional General appearance: Present: morbidly obese - EENT Eyes: Present: PERRLA - Respiratory Respiratory: bilateral: CTA - Cardiovascular Heart sounds: normal: S1, S2 - Neurologic Neurologic: Present: CNII-XII intact - Musculoskeletal Musculoskeletal Comment(s): She has tenderness in the lumbar paravertebral area bilaterally. She has tenderness around the greater trochanter on the left side. Straight leg raising test negative bilaterally. Neuro exam of the lower extremities showed decreased muscle strength to 4 out of 5 but symmetrical in both lower extremities. Hyperactive knee reflexes ,decreased right ankle reflex and absent left ankle reflex. Assessment and Plan Plan: This is a 47-year-old female with history of fibromyalgia and left hip osteoarthritis that responded to left hip joint steroid injection. The patient' s pain has been getting worse especially the left hip however I told her with motor hold off on steroid injections for now to avoid the risk of the femur head necrosis for at least 1 or 2 months from now. I will increase her Lyrica dose to 100 mg 3 times a day. She does have absent left ankle reflex which might have been there at baseline, however might need to refer her to see a neurologist there is any neurologic deterioration in the lower extremities.
== END | disposition home or self-care (01) ==
LOC: PNWHC3 12:49
PROVIDERS: ATTEND Anesthesiology
DX: M79.7 Fibromyalgia (principal); M16.12 Unilateral primary osteoarthritis, left hip; M54.5 Low back pain; Z79.891 Long term (current) use of opiate analgesic
CPT/HCPCS: 99211

== ENCOUNTER → 2018-03-15 | Outpatient (CLI) | payer OTHER ==
--- NOTE | 2018-03-16 12:08 | MM ---
Reason for exam: screening (asymptomatic). Last mammogram was performed 2 years and 2 months ago. History: Taking hormonal contraceptives for 8 years. Took other hormone for 6 months. Physical Findings: A clinical breast exam by your physician is recommended on an annual basis and results should be correlated with mammographic findings. MG Screening Mammo w CAD Bilateral CC and MLO view(s) were taken. Prior study comparison: January 07, 2016, left breast MG diagnostic mammo LT w CAD. July 19, 2015, left breast MG 3d work up w/cad LT. There are scattered fibroglandular densities. There is no discrete abnormality. No significant changes when compared with prior studies. ASSESSMENT: Negative, BI-RAD 1 RECOMMENDATION: Routine screening mammogram of both breasts in 1 year.
== END | disposition home or self-care (01) ==
LOC: RADMAMWWP 11:10
PROVIDERS: ATTEND Family Medicine
DX: Z12.31 Encounter for screening mammogram for malignant neoplasm of breast (principal)
CPT/HCPCS: 77067

== ENCOUNTER 2018-03-28 06:00 | Day surgery (SDC) | payer OTHER ==
[2018-03-22 12:02] VITALS: BMI 34.8
[~2018-03-28 06:00] MED LIST changes: -IV FLUID CONTINUATION 1,000 ML IV ONE; -LIDOCAINE 1% 20 ML VIAL (10MG/ML) FOR IV START INTRADERMA ONE; -ONDANSETRON 4 MG/2 ML VIAL IVP ONE
[2018-03-28 06:19] VITALS: TEMP 98.6
[2018-03-28] MEDS ORDERED: LIDOCAINE 1% 20 ML VIAL (10MG/ML) FOR IV START INTRADERMA ONE (06:34)
--- NOTE | 2018-03-28 07:32 | P.PCN ---
Date of Procedure: 03/28/18 Procedure(s) Performed: PREOPERATIVE DIAGNOSIS: LEFT hip osteoarthritis POSTOPERATIVE DIAGNOSIS: same PROCEDURES: left intra-articular hip steroid injection with fluoroscopy ANESTHESIA: moderate sedation with versed 2 mg , and fentanyl 50 mcg . EBL: Minimal PROCEDURE INDICATION: The patient with left hip pain secondary to osteoarthritis who has been unresponsive to conservative therapy. No use of blood thinners. PROCEDURE DESCRIPTION / TECHNIQUE: The patient was seen and identified in the preoperative area. Risks, benefits, complications, and alternatives were discussed with the patient (including but not limited to incomplete pain relief , bleeding, infection, nerve damage, and allergies to medications), the patient agreed to proceed with the procedure and signed the consent after all questions were answered. Patient was taken to the OR and time out was completed to verify proper patient , position, laterality of pain, and allergies. Pt was placed in the supine position. Vital signs remained stable throughout the procedure. The left Groin and hip area was prepped ,and draped in the usual sterile fashion. Vital signs were closely monitored during the procedure. Conscious sedation was used during the procedure to decrease patients anxiety. Using AP fluoroscopy, the femoral neck was identified, marked, and localized with 1% lidocaine. Subsequently, a 22 gauge 5-inch spinal needle was advanced guided by fluoroscopy to the 2o'clock position on the femoral neck until the needle was felt entering the hip capsule. Because of the patient's allergy to IVP dye, no contrast was injected to demonstrate an arthrogram. After negative aspiration for CSF or heme and in the absence of paresthesias, the full 6 ml ml of the block solution containing Depo-Fkuujn93 mg and 6 mL of preservative- free 0.5% Ropivacaine was injected. At the end of the procedure, the skin was cleansed and bandages were applied. COMPLICATIONS: No acute complications. DISPOSITION / PLANS: The patient was placed in a supine position and transferred to the recovery area in a stable condition for observation and was discharged from the recovery room after meeting discharge criteria. Home discharge instructions given to the patient by the staff. The patient was reexamined prior to discharge and she had significant relief. The patient will schedule a follow up in the clinic in 2-4 weeks to discuss efficacy and possible surgical referral for hip OA.
[2018-03-28] MEDS ORDERED: IV FLUID CONTINUATION 600 ML IV ONE (07:33)
[2018-03-28 07:53] VITALS: BP 15/97; PULSE 73; RESP 18
--- NOTE | 2018-03-28 08:05 | FL ---
EXAMINATION TYPE: FL guided pain mgmt statistic DATE OF EXAM: 03/28/2018 CLINICAL HISTORY: Left hip pain. TECHNIQUE: Fluoroscopy. COMPARISON: None. FINDINGS: Fluoroscopic guidance was provided during pain relief procedure performed by Dr. Rangel . A total of 4 second of fluoroscopic time was utilized during the procedure and single spot fluoros copic image is acquired. Single image acquired shows needle localization along superior lateral aspe ct of the left femoral head. IMPRESSION: As Above.
== END 2018-03-28 08:43 | disposition home or self-care (01) ==
LOC: ORPAIN 06:00
PROVIDERS: ATTEND Specialist
DX: M16.12 Unilateral primary osteoarthritis, left hip (principal); Z91.040 Latex allergy status; Z88.5 Allergy status to narcotic agent; Z88.2 Allergy status to sulfonamides; Z91.048 Other nonmedicinal substance allergy status
CPT/HCPCS: 81025; 20610; J2250; J1030; J3010; 99152

== ENCOUNTER → 2018-05-10 | Outpatient (CLI) | payer OTHER ==
[2018-05-10 11:17] VITALS: BP 127/82; PULSE 81; RESP 18; TEMP 98.5
--- NOTE | 2018-05-10 11:49 | P.PAINPG ---
Subjective Progress Note Date: 05/10/18 Follow-up visit for this 47 years old female with a chronic history of severe bilateral hip pain more prominent on the left side, we have done left hip steroid injections 2 , with good pain relief after each injection, the last injection was done in March 2018 and she reported that currently her pain level 1-2/10 She was evaluated by orthopedic surgeon ([facility] ) and recommended no surgical intervention, patient cannot do physical therapy And she had a recent MRI of the hips and it showed that the patient had left gluteus medius and minimus tendinosis and Raulito tendinitis and there is partial tear and that is trochanter bursitis Vital Signs: Reviewed in EMR Gen: AAOx3, NAD HEENT: PERRLA,hearing grossly normal Pulm: resp unlabored,CTA Heart:S1,S2, No Murmur Neck: supple, trachea midline She has mild tenderness around the left greater trochanter Neuro: CN II-XII grossly intact, Assessment: And plan = Left hip osteoarthritis Fibromyalgia Patient had good results after the left hip intra-articular steroid injections x2 , currently her pain is well controlled she had pain 1-2/10 Patient will be good candidate to have radiofrequency ablation of the left hip joint , she will follow up when necessary Objective - Vital Signs Vital signs: Vital Signs Temp 98.5 F 05/10/18 11:08 Pulse 81 05/10/18 11:08 Resp 18 05/10/18 11:08 BP 127/82 05/10/18 11:08 Pulse Ox 97 05/10/18 11:08 Intake & Output 05/09/18 05/10/18 05/10/18 18:59 06:59 18:59 Weight 92.986 kg PQRS Measure Charge Sheet Measure #130: Documentation of Current Meds in Medical Chart: Patient's medications documented in chart Measure #226: Tobacco Use: Screen & Cessation Intervention: Pt not a tobacco user Measure #111: Pneumonia Vaccination: Pneumococcal vaccine NOT administered or previously given Measure #47: Advance Care Plan: Advance care planning discussed & documented, pt chose/unable to give Measure #412: Opioid Treatment Agreement: No documentation of signed opioid treatment agreement Measure #408: Opioid Therapy Follow-up Evaluation: Patient had NO f/u eval minimum every 3 months during opioid therapy Measure #317: Preventitive Care & Scrn High Bld Press & F/U: Normal blood pressure, f/u not required Measure #128: Body Mass Index (BMI) Screening & Follow-up: BMI documented ABOVE normal parameters - f/u documented Measure #131: Pain Assessment & Follow-up: Pain positive & plan documented, Follow-up scheduled Measure #431: Unhealthy Alcohol Use Preventative Care & Scrn: Patient not identified as an unhealthy alcohol user PQRS Narrative: Smoking Status Never smoker Do You Want the Pneumonia No Vaccine AT THIS TIME? Blood Pressure 127/82 Pain Intensity [Left Hip] 1 Hx Alcohol Use (MH) No Home Medications: Ambulatory Orders Albuterol Inhaler [Ventolin Inhaler] 2 puff INHALATION RT-Q4H PRN 04/10/14 Montelukast [Singulair] 10 mg PO AC-SUPPER 04/10/14 Lisinopril [Zestril] 20 mg PO DAILY 03/26/16 Modafinil [Provigil] 200 mg PO BID 03/26/16 Cholecalciferol [Vitamin D3] 2,000 unit PO DAILY 04/29/16 Ranitidine HCl [Zantac] 150 mg PO HS 08/12/16 Butalb/APAP/Caff 50-325-40Mg [Fioricet 50-325-40] 1 tab PO Q8H PRN 09/15/16 Cetirizine HCl [Zyrtec] 10 mg PO DAILY 03/22/17 Magnesium 500 mg PO QAM 03/22/17 buPROPion HCL [buPROPion HCL SR] 150 mg PO BID 03/22/17 hydrOXYzine HCL 1 tab PO BID 03/15/18 Controlled Substance Measures - Controlled Substance Measures Is patient prescribed a controlled substance at discharge?: No When asked, does pt state using other controlled substances?: No If prescribed controlled substance>3 days was MAPS reviewed?: No If Rx opioid, was Start Talking consent form obtained?: No If opioid is for acute pain is fill amount 7 days or less?: No Was information provided regarding opioid addiction?: No
== END | disposition home or self-care (01) ==
LOC: PNWHC3 11:01
PROVIDERS: ATTEND Specialist
DX: G89.29 Other chronic pain (principal); M25.552 Pain in left hip; M25.551 Pain in right hip; M16.12 Unilateral primary osteoarthritis, left hip; M79.7 Fibromyalgia
CPT/HCPCS: 99211

== ENCOUNTER → 2019-03-28 | Outpatient (CLI) | payer OTHER ==
--- NOTE | 2019-03-30 10:56 | MM ---
Reason for exam: screening (asymptomatic). Last mammogram was performed 1 year ago. History: Taking hormonal contraceptives for 8 years. Took other hormone for 6 months. Physical Findings: A clinical breast exam by your physician is recommended on an annual basis and results should be correlated with mammographic findings. MG Screening Mammo w CAD Bilateral CC and MLO view(s) were taken. XCCL view(s) were taken of the right breast. Prior study comparison: March 15, 2018, bilateral MG screening mammo w CAD. January 07, 2016, left breast MG diagnostic mammo LT w CAD. There are scattered fibroglandular densities. Asymmetric breast tissue left CC anterior central position, stable from 2012. There is no discrete abnormality. ASSESSMENT: Benign, BI-RAD 2 RECOMMENDATION: Routine screening mammogram of both breasts in 1 year.
== END | disposition home or self-care (01) ==
LOC: RADMAMWWP 09:18
PROVIDERS: ATTEND Family Medicine
DX: Z12.31 Encounter for screening mammogram for malignant neoplasm of breast (principal)
CPT/HCPCS: 77067

== ENCOUNTER → 2019-06-06 | Outpatient (CLI) | payer OTHER ==
[2019-06-06 14:47] VITALS: BMI 39.3
== END | disposition home or self-care (01) ==
LOC: DBWHC3 12:57
PROVIDERS: ATTEND Nurse Practitioner Family
DX: E66.9 Obesity, unspecified (principal); Z68.39 Body mass index [BMI] 39.0-39.9, adult
CPT/HCPCS: 97802

== ENCOUNTER → 2019-07-24 | Outpatient (CLI) | payer OTHER ==
[2019-07-24 14:09] VITALS: BP 133/90; PULSE 76; RESP 16
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
== END | disposition home or self-care (01) ==
LOC: PNWHC3 12:28
PROVIDERS: ATTEND Anesthesiology
DX: M16.12 Unilateral primary osteoarthritis, left hip (principal); M53.3 Sacrococcygeal disorders, not elsewhere classified; M79.7 Fibromyalgia; Z79.891 Long term (current) use of opiate analgesic; Z79.899 Other long term (current) drug therapy
CPT/HCPCS: 99211

== ENCOUNTER 2019-08-03 08:25 | Day surgery (SDC) | payer OTHER ==
[2019-08-02 09:09] VITALS: BMI 38.4
[~2019-08-03 08:25] MED LIST changes: +BUPIVACAINE (PF) 0.5% 30 ML VIAL ONE; +GADOBUTROL IV ONE; +MIDAZOLAM 2 MG/2 ML VIAL ONE; +TRIAMCINOLONE ACETONIDE 40 MG/ML 1 ML VIAL ONE; +fentaNYL (PF) 50 MCG/ML 2 ML AMP ONE
[2019-08-03] MEDS ORDERED: LIDOCAINE 1% 20 ML VIAL (10MG/ML) FOR IV START INTRADERMA ONE (09:35)
[2019-08-03 09:42] VITALS: RESP 16; TEMP 97.7
[2019-08-03 09:45] LABS: Glucose,Whole Blood 84 mg/dL (75-99)
[2019-08-03] MEDS ORDERED: IV FLUID CONTINUATION 1,000 ML IV ONE (10:28)
--- NOTE | 2019-08-03 10:35 | P.PCN ---
Date of Procedure: 08/03/19 Procedure(s) Performed: Preoperative diagnoses: right sacroilitis, left hip osteoarthritis Postoperative diagnoses: right sacroilitis, left hip osteoarthritis Procedure: right sacroiliac joint steroid injection and left hip intra- articular steroid injection under fluoroscopic guidance. Surgeon: Carter Dorantes MD Anesthesia: [2 mL of 1% lidocaine/moderate sedation with Versed and fentanyl per hospital guidelines], sedation time 14 minutes Fluoroscopy was used for the procedure and fluoroscopic images were saved to the radiology portion of the patient's chart. EBL: None Procedure indication: The patient had a history of severe chronic low back pain, diagnosed with sacroiliitis unresponsive to conservative treatment. Patient also has left hip osteoarthritis, responded well to prior intra- articular steroid injections Procedure description: The patient was seen and identified in the preoperative holding area, risks and benefits and alternative of the procedure and possible complications discussed with the patient, and patient agreed with the preceding, patient signed the consent, an IV was started, and vital signs were monitored and were stable throughout the procedure, patient was placed in the prone position on table and the lumbosacral area was prepped and draped with a sterile fashion, vital signs were closely monitored during the procedure, the fluoroscopy camera was placed in the contralateral oblique view on the right sacroiliac joint and the lower part of the joint was identified . Then the skin and subcutaneous tissue was anesthetized using 2 mL of 1% lidocaine then a 22- gauge Quincke-type spinal needle advanced slowly under fluoroscopy and placed in the posterior and inferior border of the right sacroiliac joint, placement confirmed with AP and lateral view, and after appropriate needle placement confirmed and after negative aspiration for heme, 0.2 mL of Gadavist 1mmol/ml was injected revealing intra-articular spread. Then a solution consisting of 2 ml of ropivacaine 0.5% and 40 mg of Kenalog injected after negative aspiration, no paresthesia during the injection, no resistance to injection, and the needle was removed. Patient tolerated the procedure well without any complication. Then the patient was placed in a supine position and the groin area was prepped with chlorhexidine and draped with the standard fashion, AP fluoroscopy was used to identify the junction of the head and neck of the femur. Skin and subcutaneous tissue was infiltrated with 2 mL of 1% lidocaine. a 22-gauge 3.5" Quincke spinal needle was advanced through the skin and subcutaneous tissue into the hip joint. After negative aspiration, 0.2 MLS of Gadavist 1mmol/ml was injected, revealing intra-articular spread. Then the treatment solution of 4 cc 0.5% ropivacaine with 40 mg of Kenalog injected. Comments: Patient is ALLERGIC to iodinated contrast dye, hence Gadavist was used Complications= there was no acute complication identified. Disposition= patient was transferred to recovery room in stable condition for observation and was discharged home after meeting discharge criteria, and discharge instruction was given and patient will follow up in the pain clinic in a few weeks
[2019-08-03 10:49] VITALS: BP 116/60; PULSE 72
--- NOTE | 2019-08-03 11:12 | FL ---
EXAMINATION TYPE: FL guided pain mgmt statistic DATE OF EXAM: 08/03/2019 CLINICAL HISTORY: Low back and pelvic pain. TECHNIQUE: Fluoroscopy. COMPARISON: None. FINDINGS: Fluoroscopic guidance was provided during pain relief procedure performed by Dr. Rangel . A total of 7 seconds of fluoroscopic time was utilized during the procedure and 3 spot images are acquired. Images acquired shows needle localization of a sacroiliac joint and hip. IMPRESSION: As Above.
== END 2019-08-03 11:00 ==
LOC: ORPAIN 08:25
PROVIDERS: ATTEND Anesthesiology
DX: M46.1 Sacroiliitis, not elsewhere classified (principal); M16.12 Unilateral primary osteoarthritis, left hip; G89.29 Other chronic pain; G43.909 Migraine, unspecified, not intractable, without status migrainosus; M79.7 Fibromyalgia; M53.3 Sacrococcygeal disorders, not elsewhere classified; Z79.891 Long term (current) use of opiate analgesic; Z79.51 Long term (current) use of inhaled steroids; Z79.899 Other long term (current) drug therapy
CPT/HCPCS: 27096; 20610 ×2; 81025; J2250; J3301; J3010; A9585; G0260

== ENCOUNTER → 2019-08-17 | Outpatient (CLI) | payer OTHER ==
[2019-08-17 13:49] VITALS: BP 150/83; PULSE 77; RESP 16
--- NOTE | 2019-08-18 13:00 | P.PAINPG ---
Subjective Progress Note Date: 08/17/19 This is a follow-up visit for this 48 year old female with a chronic history of severe bilateral hip pain more prominent on the left side, and right SI joint dysfunction. Most recently, we have done left hip intra-articular steroid injection and right SI joint injection on 08/03/2019. She returns today for follow-up. She reports almost 100% pain relief from the left hip injection approximately 80% relief from a right SI joint injection. She has ongoing relief from this procedure. Today, she would like to discuss her neck pain. She complains of pain in the bilateral occipital region radiating to bilateral posterior neck and bilateral trapezius muscles, this has been present for many years. Of note she does have migraines. She has had occipital nerve blocks done in the past as well as trigger point injections, with good benefitmore than 50% relief lasting for 6-9 months. She does note occasional numbness and tingling in bilateral arms she. She has a history of bilateral carpal tunnel surgery as well as bilateral cubital tunnel surgery. She does endorse subjective associated weakness in bilateral upper extremities. Medications for pain include Tylenol PM, however she reports this doesn't help significantly. She does take Fioricet when necessary for migraines. Review of systems is negative for chest pain, shortness of breath, new onset weakness, abdominal pain, malaise, fever, night sweats, chills, homicidal or suicidal ideation, or bowel incontinence. She does endorse chronic stress incontinence, as well as chronic numbness and tingling in bilateral hands and feet. She is the primary caregiver for her and [id number] who have suffered strokes in the past. Vital Signs: Reviewed in EMR Gen: AAOx3, NAD HEENT: PERRLA,hearing grossly normal Pulm: resp unlabored Heart: No pedal edema Neck: supple, trachea midline Cervical spine: Tenderness to palpation along bilateral cervical paraspinal muscles as well as bilateral trapezius and rhomboids. Multiple trigger points palpable. Left occipital Tinel's sign is positive. Right occipital region Tinel's is tender to palpate. Neuro: CN II-XII grossly intact, upper extremity sensation and motor is grossly intact Assessment: And plan = Cervical myofascial pain syndrome Bilateral occipital neuralgia Left hip osteoarthritisresponded well to intra-articular hip steroid injection Right sacroiliac joint dysfunctionresponded well to SI joint injection Fibromyalgia Depression Procedures: We will schedule bilateral occipital nerve blocks and trigger point injections to bilateral trapezius, rhomboids, cervical paraspinals Medications: No change Counseling: patient was counseled on the importance of weight loss. Follow-up: For above-mentioned procedure PQRS Measure Charge Sheet Measure #130: Documentation of Current Meds in Medical Chart: Patient's medications documented in chart Measure #226: Tobacco Use: Screen & Cessation Intervention: Pt not a tobacco user Measure #111: Pneumonia Vaccination: Pneumococcal vaccine NOT administered or previously given Measure #47: Advance Care Plan: Advance care planning discussed & documented, pt chose/unable to give Measure #412: Opioid Treatment Agreement: No documentation of signed opioid treatment agreement Measure #408: Opioid Therapy Follow-up Evaluation: Patient had NO f/u eval minimum every 3 months during opioid therapy Measure #317: Preventitive Care & Scrn High Bld Press & F/U: Blood pressure hypertensive or prehypertensive, follow-up with primary care physician Measure #128: Body Mass Index (BMI) Screening & Follow-up: BMI documented ABOVE normal parameters - f/u documented Measure #131: Pain Assessment & Follow-up: Pain positive & plan documented, Follow-up scheduled Measure #431: Unhealthy Alcohol Use Preventative Care & Scrn: Patient not identified as an unhealthy alcohol user PQRS Measure Charge Sheet PQRS Narrative: Smoking Status Never smoker Pain Intensity [Left Hip] 0 Pain Intensity [Right Back] 0 Scale Used Numeric (1 - 10) Hx Alcohol Use (MH) No Home Medications: Ambulatory Orders Albuterol Inhaler [Ventolin Inhaler] 2 puff INHALATION RT-Q4H PRN 04/10/14 Montelukast [Singulair] 10 mg PO QAM 04/10/14 Lisinopril [Zestril] 20 mg PO QAM 03/26/16 Modafinil [Provigil] 200 mg PO BID 03/26/16 Cholecalciferol [Vitamin D3] 2,000 unit PO DAILY 04/29/16 Butalb/APAP/Caff 50-325-40Mg [Fioricet 50-325-40] 1 tab PO Q8H PRN 09/15/16 Cetirizine HCl [Zyrtec] 10 mg PO HS 03/22/17 Magnesium 500 mg PO QAM 03/22/17 hydrOXYzine HCL 25 mg PO DAILY 03/15/18 Biotin 1 mg PO DAILY 07/18/19 Famotidine [Pepcid] 20 mg PO HS 07/18/19 Fluticasone/Salmeterol [Advair 100-50 Diskus] 1 inhalation PO BID 07/18/19 Ketotifen 0.025% Ophth Soln [Zaditor] 1 drop BOTH EYES DAILY 07/18/19 Vitamin B Complex 1 each PO DAILY 07/18/19 Acetaminophen/Diphenhydramine [Tylenol PM 500-25mg] 1 tab PO HS PRN 07/24/19 Acetaminophen Tab [Tylenol Tab] 1,000 mg PO TID PRN 08/02/19 Lurasidone [Latuda] 20 mg PO DAILY 08/14/19 Controlled Substance Measures - Controlled Substance Measures Is patient prescribed a controlled substance at discharge?: No
== END | disposition home or self-care (01) ==
LOC: PNWHC3 12:32
PROVIDERS: ATTEND Anesthesiology
DX: M54.81 Occipital neuralgia (principal); M16.12 Unilateral primary osteoarthritis, left hip; M53.3 Sacrococcygeal disorders, not elsewhere classified; M79.7 Fibromyalgia; F32.9 Major depressive disorder, single episode, unspecified; Z79.51 Long term (current) use of inhaled steroids; Z79.899 Other long term (current) drug therapy
CPT/HCPCS: 99211

== ENCOUNTER 2019-09-19 05:56 | Day surgery (SDC) | payer OTHER ==
[2019-09-18 10:59] VITALS: BMI 39.1
[~2019-09-19 05:56] MED LIST changes: -BUPIVACAINE (PF) 0.5% 30 ML VIAL ONE; -GADOBUTROL IV ONE; -MIDAZOLAM 2 MG/2 ML VIAL ONE; -TRIAMCINOLONE ACETONIDE 40 MG/ML 1 ML VIAL ONE; -fentaNYL (PF) 50 MCG/ML 2 ML AMP ONE
[2019-09-19] MEDS ORDERED: LIDOCAINE 1% (10MG/ML) FOR IV START INTRADERMA ONE (06:27)
[2019-09-19 06:35] VITALS: TEMP 97.3
[2019-09-19] MEDS ORDERED: BUPIVACAINE (PF) 0.5% 30 ML VIAL ONE (07:16)
[2019-09-19] MEDS ORDERED: DEXAMETHASONE SOD PHOSPHATE 10 MG/ML 1 ML VIAL ONE (07:16)
--- NOTE | 2019-09-19 07:29 | P.PCN ---
Date of Procedure: 09/19/19 Preoperative Diagnosis: Occipital neuralgia bilaterally Myofascial pain in the neck and upper back area bilaterally Postoperative Diagnosis: Same as above Anesthesia: none Surgeon: Maura Ernandez Pathology: none sent Condition: stable Disposition: PACU Description of Procedure: EBL: Minimal PROCEDURE INDICATION: The patient with neck pain and headache secondary to occipital neuralgea unresponsive to conservative treatments. PROCEDURE DESCRIPTION / TECHNIQUE: The patient was seen and identified in the p reoperative area. Risks, benefits, complications, and alternatives were discussed with the patient, the patient agreed to proceed with the procedure and signed the consent. IV was started. Vital signs remained stable throughout the procedure. Patient was taken to the OR and time out was completed. The patient was placed in the prone position on the procedure table. A pillow was placed under the p atients chest to increase the cervical interlaminar space. The cervical area and right occiptial area were prepped with chloraprep. Critical pause was taken. Vital signs were closely monitored during the procedure. Conscious sedation was used during the procedure to decrease patients anxiety. The the occipital exuberance and superior nuchal line were identified on the right side of the occiput. The greater occipital nerve location was estimated to be medial to the occipital artery and one third of the distance between the occipital exuberance and the right mastoid and the lesser occipital nerve was about two thirds of the distance between the occipital exuberance and the right mastoid on the superior nuchal line. I used 25-gauge 1-1/2 inch needle to go through the skin at these 2 points and infiltrate 2.5 MLS of a solution made up of 6 MLS Marcaine 0.5% +10 mg of Decadron. The solution was infiltrated down to the periosteum.The same procedure was repeated on the left side. Patient tolerated procedure well. I then turned my attention to doing the trigger point injection. The injection sites were marked at the skin level and skin was prepped with ChloraPrep and 25- gauge 1-1/2 inch needle was used to go through the skin and into the following muscles with injection of 1 mL into each muscle: Trapezius muscle bilaterally, rhomboid muscles bilaterally, cervical paravertebral muscles bilaterally. A total of 8 injection sites were done. Patient tolerated procedure well.
[2019-09-19] MEDS ORDERED: IV FLUID CONTINUATION 700 ML IV ONE (07:30)
[2019-09-19 07:48] VITALS: BP 122/80; PULSE 74; RESP 20
== END 2019-09-19 07:58 | disposition home or self-care (01) ==
LOC: ORPAIN 05:56
PROVIDERS: ATTEND Anesthesiology
DX: M54.81 Occipital neuralgia (principal); M79.18 Myalgia, other site; I10 Essential (primary) hypertension; E66.01 Morbid (severe) obesity due to excess calories; Z91.048 Other nonmedicinal substance allergy status; Z68.38 Body mass index [BMI] 38.0-38.9, adult
CPT/HCPCS: 81025; 20553; 64405; J1100

== ENCOUNTER → 2021-01-16 | Outpatient (CLI) | payer OTHER ==
--- NOTE | 2021-01-17 13:41 | MM ---
Reason for exam: screening (asymptomatic). Last mammogram was performed 1 year and 10 months ago. History: Patient is postmenopausal. Took hormonal contraceptives for 8 years. Took other hormone for 6 months. Physical Findings: A clinical breast exam by your physician is recommended on an annual basis and results should be correlated with mammographic findings. MG Screening Mammo w CAD Bilateral CC and MLO view(s) were taken. Prior study comparison: March 28, 2019, bilateral MG screening mammo w CAD. March 15, 2018, bilateral MG screening mammo w CAD. Finding #1: There is a 6 mm equal density (isodense), obscured mass in the upper outer quadrant of the right breast. Finding #2: There are typically benign calcifications in both breasts. ASSESSMENT: Incomplete: need additional imaging evaluation, BI-RAD 0 RECOMMENDATION: Special view mammogram of the right breast. If lesion persists on supplemental views, image directed ultrasound is recommended. [facility] will attempt to contact patient to return for supplemental views and ultrasound if indicated.
== END | disposition home or self-care (01) ==
LOC: RADMAMWWP 16:28
PROVIDERS: ATTEND Family Medicine
DX: Z12.31 Encounter for screening mammogram for malignant neoplasm of breast (principal)
CPT/HCPCS: 77067

== ENCOUNTER → 2021-01-27 | Outpatient (CLI) | payer OTHER ==
--- NOTE | 2021-01-31 11:43 | MM ---
Reason for exam: additional evaluation requested from abnormal screening. Last mammogram was performed less than 1 month ago. History: Patient is postmenopausal. Took hormonal contraceptives beginning at age 24. Took other hormone for 6 months. Physical Findings: Nurse did not find any significant physical abnormalities on exam. MG Work Up Mamm w CAD RT Spot compression CC, spot compression MLO, and LM view(s) were taken of the right breast. Prior study comparison: January 16, 2021, bilateral MG screening mammo w CAD. March 28, 2019, bilateral MG screening mammo w CAD. There are scattered fibroglandular densities. The questioned nodular asymmetric density becomes less defined. It may have been present on priors as well. 6 month follow up recommended. These results were verbally communicated with the patient and result sheet given to the patient on 01/27/21. ASSESSMENT: Probably benign, BI-RAD 3 RECOMMENDATION: Follow-up diagnostic mammogram of the right breast in 6 months.
== END | disposition home or self-care (01) ==
LOC: RADMAMWWP 10:12
PROVIDERS: ATTEND Family Medicine
DX: R92.8 Other abnormal and inconclusive findings on diagnostic imaging of breast (principal)
CPT/HCPCS: 77065